=== PATIENT | male | born 1990 | race Caucasian/White ===

== ENCOUNTER → 2016-08-27 | Outpatient (CLI) | payer BC ==
--- NOTE | 2016-08-28 13:27 | DI ---
XR HAND MIN 3VW,08/27/2016 3:42 PM: Clinical History: Injury of the left hand Previous Exam: None at this facility. Findings: 3 views of left hand are obtained, and demonstrate anatomic alignment without fractures. The surround ing soft tissues are unremarkable. Is a small avulsion of the left ulnar styloid. Impression: No fracture.
--- NOTE | 2016-08-28 13:28 | DI ---
XR WRIST COMPLETE MIN 3VW,08/27/2016 3:42 PM: Clinical History: Injury Previous Exam: None at this facility. Findings: 3 views of the left wrist are obtained, and demonstrate anatomic alignment. There is a small avulsion fracture of the left styloid. The surrounding soft tissues are unremarkable. Impression: Small avulsion fracture of the left ulnar styloid.
== END ==
LOC: RAD 15:47
PROVIDERS: ATTEND Physician Assistant Medical
DX: S69.92XA Unspecified injury of left wrist, hand and finger(s), initial encounter (principal); L03.114 Cellulitis of left upper limb; S52.615D Nondisplaced fracture of left ulna styloid process, subsequent encounter for closed fracture with routine healing; V80.919A Animal-rider injured in unspecified transport accident, initial encounter
CPT/HCPCS: 73110; 73130